=== PATIENT | female | born 1955 | race African-American/Black ===

== ENCOUNTER 2016-09-14 08:55 | Emergency (ER) | payer OTHER ==
[~2016-09-14] VITALS: Ht 160 cm; Wt 90.9 kg
[~2016-09-14 08:55] MED LIST: ASPIR-LOW81 MG PO; CITALOPRAM HBR10 MG PO; JANUVIA100 MG PO; LIDOCAINE700 MG TD; LIPITOR80 MG PO; LISINOPRIL10 MG PO; MOTRIN800 MG PO; NORCO 7.5/321 TABLET PO; PERCOCET 5/31 TABLET PO; TYLENOL EXTRA500 MG PO; VALIUM2 MG PO; ZESTRIL,PRINIV2.5 MG PO
[2016-09-14] MEDS ORDERED: LISINOPRIL40 MG PO (10:33)
[2016-09-14] MEDS ORDERED: GLIPIZIDE5 MG PO (10:36)
[2016-09-14] MEDS ORDERED: GLUCOPHAGE1000 MG PO (10:38)
[2016-09-14] MEDS ORDERED: CITALOPRAM HBR40 MG PO (10:39)
[2016-09-14] MEDS ORDERED: LISINOPRIL20 MG PO (10:40)
[2016-09-14] MEDS ORDERED: BACLOFEN10 MG PO (13:20)
[2016-09-14] MEDS ORDERED: OXAYDO5 MG PO (13:20)
[2016-09-14 13:43] VITALS: BP 115/70
== END 2016-09-14 13:37 | disposition home or self-care (01) ==
LOC: EME 08:55
DX: M50.123 Cervical disc disorder at C6-C7 level with radiculopathy (principal); R42 Dizziness and giddiness; I10 Essential (primary) hypertension; E11.9 Type 2 diabetes mellitus without complications; Z79.82 Long term (current) use of aspirin
CPT/HCPCS: 72040; 72141; 99281; 99284

== ENCOUNTER 2017-07-04 09:42 | Emergency (ER) | payer OTHER ==
[~2017-07-04] VITALS: Ht 165.1 cm; Wt 88.8 kg
[~2017-07-04 09:42] MED LIST changes: +BACLOFEN10 MG PO; +CITALOPRAM HBR40 MG PO; +GLIPIZIDE5 MG PO; +GLUCOPHAGE1000 MG PO; +LISINOPRIL20 MG PO; +LISINOPRIL40 MG PO; +OXAYDO5 MG PO
[2017-07-04 10:20] LABS: HEMATOCRIT 42.2 % (36.0-46.0); HEMOGLOBIN 13.6 G/DL (11.9-15.5); MCH 28.9 PG (29.0-34.0); MCHC 32.2 G/DL (30.0-36.0); MCV 89.6 FL (83-99); PLATELET COUNT 263 K/uL (156-360); RBC DIS.WIDTH-CV 12.5 % (11.8-14.6); RBC DIS.WIDTH-SD 41.3 % (39-53); RED BLOOD COUNT 4.71 M/uL (3.80-5.20)
[2017-07-04 10:22] LABS: APPEARANCE CLEAR ((CLEAR)); BILIRUBIN NEGATIVE; BLOOD SMALL; COLOR YELLOW ((YELLOW)); GLUCOSE (STRIP) NEGATIVE; KETONES NEGATIVE; LEUKOCYTES NEGATIVE; NITRITE NEGATIVE; PROTEIN (STRIP) 30; SPECIFIC GRAVITY 1.029 (1.000-1.030); UROBILINOGEN 0.2 MG/DL (0.2-1.0)
[2017-07-04 10:28] LABS: BACTERIA NONE SEEN /HPF; EPITHELIAL CELLS RARE /HPF; HYALINE CASTS 0-5 /LPF; MUCUS TRACE /LPF; RED BLOOD CELLS 0-5 /HPF (0-5); UCUL ADDED? NO; WHITE BLOOD CELLS 0-5 /HPF (0-5)
[2017-07-04 10:33] LABS: ALBUMIN 4.4 g/dL (3.2-4.8); CHLORIDE 107 mEq/L (99-109); POTASSIUM 4.4 mEq/L (3.7-5.4); SODIUM 139 mEq/L (136-147)
[2017-07-04 10:35] LABS: GLUCOSE 134 mg/dL (70-99)
[2017-07-04 10:37] LABS: TOTAL BILIRUBIN 0.5 mg/dL (0.0-1.0)
[2017-07-04 10:39] LABS: ALKALINE PHOSPHATASE 63 IU/L (3-129); CREATININE 1.1 mg/dL (0.6-1.3); GFR ESTIMATE (CALCULATED) > 59 mL/min/
[2017-07-04 10:40] LABS: UREA NITROGEN (BUN) 20 mg/dL (9-23)
[2017-07-04 10:41] LABS: AST (GOT) 25 IU/L (2-34)
[2017-07-04 10:42] LABS: ALT (GPT) 30 IU/L (3-49)
[2017-07-04] MEDS ORDERED: ZANTAC150 MG PO (11:14)
[2017-07-04] MEDS ORDERED: ZOFRAN ODT4 MG PO (11:14)
[2017-07-04 11:41] VITALS: BP 145/94
== END 2017-07-04 11:42 | disposition home or self-care (01) ==
LOC: EME 09:42
DX: K29.70 Gastritis, unspecified, without bleeding (principal); E11.9 Type 2 diabetes mellitus without complications; I10 Essential (primary) hypertension; E78.5 Hyperlipidemia, unspecified; Z79.84 Long term (current) use of oral hypoglycemic drugs
CPT/HCPCS: 80053; 81003; 85027; 93005; 99281; 99284

== ENCOUNTER 2018-01-16 19:55 | Emergency (ER) | payer OTHER ==
[~2018-01-16] VITALS: Ht 160 cm; Wt 84.8 kg
[~2018-01-16 19:55] MED LIST changes: +ZANTAC150 MG PO; +ZOFRAN ODT4 MG PO
[2018-01-16 20:46] LABS: HEMATOCRIT 43.1 % (36.0-46.0); HEMOGLOBIN 14.3 G/DL (11.9-15.5); MCH 29.4 PG (29.0-34.0); MCHC 33.2 G/DL (30.0-36.0); MCV 88.7 FL (83-99); PLATELET COUNT 274 K/uL (156-360); RBC DIS.WIDTH-CV 12.2 % (11.8-14.6); RBC DIS.WIDTH-SD 39.9 % (39-53); RED BLOOD COUNT 4.86 M/uL (3.80-5.20); WHITE BLOOD COUNT 6.2 K/uL (4.1-10.2)
[2018-01-16 20:57] LABS: ALBUMIN 4.6 g/dL (3.2-4.8)
[2018-01-16 20:58] LABS: CHLORIDE 106 mEq/L (99-109); POTASSIUM 4.7 mEq/L (3.7-5.4); SODIUM 141 mEq/L (136-147)
[2018-01-16 21:00] LABS: GLUCOSE 116 mg/dL (70-99); TOTAL PROTEIN 8.1 g/dL (6.4-8.3)
[2018-01-16 21:02] LABS: TOTAL BILIRUBIN 1.2 mg/dL (0.0-1.0)
[2018-01-16 21:03] LABS: ALKALINE PHOSPHATASE 61 IU/L (3-129)
[2018-01-16 21:04] LABS: CREATININE 1.1 mg/dL (0.6-1.3); GFR ESTIMATE (CALCULATED) > 59 mL/min/
[2018-01-16 21:05] LABS: AST (GOT) 27 IU/L (2-34); UREA NITROGEN (BUN) 16 mg/dL (9-23)
[2018-01-16 21:06] LABS: ALT (GPT) 35 IU/L (3-49)
[2018-01-16 22:10] LABS: LIPASE 32 U/L (1.0-51.0)
[2018-01-16 22:34] LABS: APPEARANCE CLEAR ((CLEAR)); BILIRUBIN NEGATIVE; BLOOD SMALL; COLOR YELLOW ((YELLOW)); GLUCOSE (STRIP) NEGATIVE; KETONES 5; LEUKOCYTES NEGATIVE; NITRITE NEGATIVE; PROTEIN (STRIP) 100; SPECIFIC GRAVITY 1.025 (1.000-1.030); UROBILINOGEN 0.2 MG/DL (0.2-1.0)
[2018-01-16 22:38] LABS: BACTERIA NONE SEEN /HPF; EPITHELIAL CELLS RARE /HPF; HYALINE CASTS 0-5 /LPF; MUCUS TRACE /LPF; RED BLOOD CELLS 0-5 /HPF (0-5); UCUL ADDED? NO; WHITE BLOOD CELLS 0-5 /HPF (0-5)
[2018-01-16 23:16] LABS: TROP-I INTERPRETATION NEGATIVE; TROPONIN-I < 0.01 ng/mL (0.0-0.30)
[2018-01-17] MEDS ORDERED: ZOFRAN4 MG PO (00:37)
[2018-01-17 00:50] VITALS: BP 142/86
== END 2018-01-17 00:51 | disposition home or self-care (01) ==
LOC: EME 19:55
DX: R31.9 Hematuria, unspecified (principal); R11.2 Nausea with vomiting, unspecified; R10.9 Unspecified abdominal pain; I10 Essential (primary) hypertension; E78.5 Hyperlipidemia, unspecified; E11.9 Type 2 diabetes mellitus without complications; Z79.84 Long term (current) use of oral hypoglycemic drugs
CPT/HCPCS: 74176; 80053; 81003; 83690; 84484; 85027; 93005; 99281; 99285; J2405; J3010; J7030